=== PATIENT | male | born 1960 | race Two or more races ===

== ENCOUNTER 2021-08-31 11:08 | Emergency (ER) | payer OTHER ==
[~2021-08-31] VITALS: Ht 162.6 cm; Wt 73.5 kg
[2021-08-31] MEDS ORDERED: VASOTEC5 MG PO (11:42)
[2021-08-31] MEDS ORDERED: BETAPACE120 MG (11:43)
[2021-08-31] MEDS ORDERED: ATORVASTATIN CA80 MG PO (11:43)
[2021-08-31] MEDS ORDERED: EPLERENONE25 MG PO (11:43)
[2021-08-31] MEDS ORDERED: CARVEDILOL6.25 MG (11:43)
[2021-08-31] MEDS ORDERED: ELIQUIS5 M1 PO (11:43)
[2021-08-31] MEDS ORDERED: MEXILETINE HCL200 MG PO (11:44)
== END 2021-08-31 17:33 | disposition home or self-care (01) ==
LOC: ER 11:08
DX: K59.09 Other constipation (principal); Z11.52 Encounter for screening for COVID-19